=== PATIENT | male | born 1960 | race Caucasian/White ===

== ENCOUNTER → 2023-07-01 11:08 | Outpatient (CLI) | payer OTHER, MEDICAID, SELFPAY ==
--- NOTE | 2023-07-01 11:11 | DI.NM.S_ITS ---
PROCEDURE: [place] BONE SCAN WHOLE BODY RADIOPHARMACEUTICAL: 21 mCi Tc-99m MDP IV. INDICATIONS: PROSTATE CANCER TECHNIQUE: Delayed whole-body scintigrams were obtained approximately 3-4 hours after intravenous injection of radiotracer. Anterior and posterior views were acquired from vertex to feet. Additional left and right oblique views of the pelvis were obtained. COMPARISON: [facility], CR, XR PELVIS WITH INLET OUTLET 3 VIEWS, 09/12/2021, 10:55. Outside Film, CT, CT LOWER EXTREMITY LEFT WITHOUT CONTRAST, 06/08/2021, 19:59. Outside Film, CT, CT ABDOMEN PELVIS WITH CONTRAST, 06/10/2021, 11:40. Outside Film, CT, CT CHEST WITH CONTRAST, 06/10/2021, 11:40. Outside Film, MR, MR PELVIS WITH/WITHOUT CONTRAST, 06/11/2021, 8:52. Outside Film, [place], WHOLE BODY BONE, 10/22/2021, 12:24. [facility] [place], [place], [place] BONE SCAN WHOLE BODY, 05/29/2022, 15:09. FINDINGS: There are foci of abnormal uptake in the left hemipelvis, the right ischium and pubis, and proximal femurs bilaterally, consistent with osseous metastases. No lesions are identified in skull, sternum, clavicles, scapulae, ribs, and other shafts of the long bones. There are foci of increased uptake in cervical, thoracic and lumbar spine most likely secondary to degenerative disc and facet disease; early metastasis to spine could be obscured by degenerative changes. There is left hip arthroplasty.. IMPRESSION: Stable bone scan with foci of abnormal uptake consistent with osseous metastases as described. Dictated by: Estrella Mariano M.D. on 07/01/2023 at 15:33 Approved by: Estrella Mariano M.D. on 07/01/2023 at 15:42
== END ==
LOC: NUCM 11:10
PROVIDERS: Referring Provider Nurse Practitioner Adult Health; Visit Provider Nurse Practitioner Adult Health
DX: C61 Malignant neoplasm of prostate (principal); C79.51 Secondary malignant neoplasm of bone
CPT/HCPCS: 78306; A9503